=== PATIENT | female | born 2005 | race Caucasian/White ===

== ENCOUNTER 2023-08-21 10:52 | Emergency (ER) | payer SELFPAY | END 2023-08-21 12:31 | disposition home or self-care (01) | LOC: KA.ED 10:52 | DX: J02.8 Acute pharyngitis due to other specified organisms (principal) | CPT/HCPCS: 87651-QW; 99283 ==

== ENCOUNTER 2023-11-15 15:23 | Emergency (ER) | payer SELFPAY ==
[2023-11-15 16:01] LABS: BASOPHILS ABSOLUTE AUTO 0.02 10^3/uL (0.00-0.10); BASOPHILS PERCENT AUTO 0.3 % (0.0-1.0); EOSINOPHILS ABSOLUTE AUTO 0.12 10^3/uL (0.10-0.30); EOSINOPHILS PERCENT AUTO 1.5 % (1.0-3.0); HEMATOCRIT 39.8 % (37.0-47.0); HEMOGLOBIN 13.4 g/dL (12.0-16.0); IMMATURE GRAN ABSOLUTE AUTO 0.04 10^3/uL (0.00-0.50); IMMATURE GRAN PERCENT AUTO 0.5 % (0.0-5.0); LYMPHOCYTES ABSOLUTE AUTO 1.35 10^3/uL (1.00-4.00); LYMPHOCYTES PERCENT AUTO 17.4 % (20.0-40.0); MEAN CORPUSCULAR HEMOGLOBIN 30.5 pg (27.0-31.0); MEAN CORPUSCULAR HGB CONC 33.7 g/dL (32.0-36.0); MEAN CORPUSCULAR VOLUME 90.7 fL (82.0-92.0); MEAN PLATELET VOLUME 9.4 fL (7.4-10.4); MONOCYTES ABSOLUTE AUTO 0.83 10^3/uL (0.10-0.80); MONOCYTES PERCENT AUTO 10.7 % (2.0-8.0); NEUTROPHILS ABSOLUTE AUTO 5.39 10^3/uL (2.50-7.00); NEUTROPHILS PERCENT AUTO 69.6 % (50.0-70.0); PLATELET COUNT,PLT 269 10^3/uL (150-400); RED BLOOD CELL COUNT 4.39 10^6/uL (3.80-5.50); WHITE BLOOD CELL COUNT,WBC 7.75 10^3/uL (5.00-10.00)
[2023-11-15 16:18] LABS: ANION GAP 10.8 mmol/L (5-15); CALCIUM 8.8 mg/dL (8.7-10.3); CARBON DIOXIDE,CO2 25.1 mmol/L (21.0-32.0); CREATININE 0.62 mg/dL (0.51-1.17); EST CRCL DRUG DOSING (CG) 130.24 mL/min; POTASSIUM,K 3.9 mmol/L (3.5-5.1)
[2023-11-15 16:25] LABS: APPEARANCE,URINE CLEAR (CLEAR); BILIRUBIN,URINE NEGATIVE (NEGATIVE); COLOR,URINE YELLOW (YELLOW); GLUCOSE,URINE NEGATIVE (NEGATIVE); KETONES,URINE NEGATIVE (NEGATIVE); LEUKOCYTE ESTERASE,URINE NEGATIVE (NEGATIVE); NITRITE,URINE NEGATIVE (NEGATIVE); OCCULT BLOOD,URINE NEGATIVE (NEGATIVE); PH,URINE 8.5 (5.0-9.0); PROTEIN,URINE NEGATIVE (NEGATIVE)
[2023-11-15 16:35] LABS: BACTERIA,URINE RARE /HPF (NONE TO FEW); EPITHELIAL CELLS,URINE FEW /LPF; RBC,URINE 0-5 /HPF (0-5); WBC,URINE 0-5 /HPF (0-5)
[2023-11-15 16:36] LABS: AMPHETAMINES SCREEN, URINE NEGATIVE (NEGATIVE); BARBITURATE SCREEN,URINE NEGATIVE (NEGATIVE); BENZODIAZEPINES SCREEN,URINE NEGATIVE (NEGATIVE); COCAINE METABOLITES,URINE NEGATIVE (NEGATIVE); METHADONE SCREEN, URINE NEGATIVE (NEGATIVE); METHAMPHETAMINES SCREEN, URINE NEGATIVE (NEGATIVE); OXYCODONE SCREEN,URINE NEGATIVE (NEGATIVE); PCP SCREEN,URINE NEGATIVE (NEGATIVE); THC SCREEN,URINE 50 NG/ML NEGATIVE (NEGATIVE)
[2023-11-15 16:37] LABS: TCA SCREEN,URINE NEGATIVE (NEGATIVE)
[2023-11-15] MEDS: Iopamidol 755 Mg/ML 100 ML Bottle IV ONE (17:03)
[2023-11-15] MEDS: Sodium Chloride 0.9% 50 ML IV SCH (17:03)
[2023-11-15] MEDS: Pantoprazole 40 MG Vial IVPUSH ONE (17:19)
== END 2023-11-15 18:00 | disposition home or self-care (01) ==
LOC: KA.ED 15:23
DX: R10.84 Generalized abdominal pain (principal); R07.9 Chest pain, unspecified; Z91.018 Allergy to other foods; Z87.59 Personal history of other complications of pregnancy, childbirth and the puerperium
CPT/HCPCS: 36415; 74177; 80048; 80305-QW; 81001; 81025; 85025; 85379; 96374; 99284; 99284-25; J2470; J3490; Q9967